=== PATIENT | female | born 1975 | race Caucasian/White ===

== ENCOUNTER 2017-11-26 09:41 | Emergency (ER) | payer SELFPAY ==
[~2017-11-26] VITALS: Ht 154.9 cm; Wt 81.6 kg
--- NOTE | 2017-11-26 09:42 | NUR ---
PT AMBULATES TO BED 5
--- NOTE | 2017-11-26 09:43 | NUR ---
42/F C/O SOB SINCE THIS AM WITH CP, LABORED BREATHING, HOARSE VOICE, R LUNG : WHEEZING. LIMITED SPEAKING DUE TO SOB.MED HX: ASTHMA, DEPRESSION. DENIES N/V/D; SKIN IS PINK/WARM/DRY; AAOX4 WITH EVEN AND STEADY GAIT. PATIENT STATES PAIN OF 8/10 AT THIS TIME. PATIENT POSITIONED FOR COMFORT; HOB ELEVATED; BEDRAILS UP X2; BED DOWN. ER MD MADE AWARE OF PT STATUS.
[2017-11-26 09:44] VITALS: BP 152/90
--- NOTE | 2017-11-26 09:45 | NUR ---
Patient being evaluated by physician at bedside.
--- NOTE | 2017-11-26 09:46 | NUR ---
RT AT BEDSIDE.
--- NOTE | 2017-11-26 09:53 | NUR ---
EKG AT BEDSIDE.
[2017-11-26] MEDS ORDERED: ALBUTEROL 0.083% 2.5 MG/3 ML NEBU INH ONE ×3 (09:55→12:05)
[2017-11-26] MEDS ORDERED: predniSONE 20 MG TAB PO ONE (09:55)
[2017-11-26] MEDS ORDERED: IPRATROPIUM 0.02% 0.5 MG/2.5 ML NEBU INH ONE (09:55)
--- NOTE | 2017-11-26 10:54 | NUR ---
RT AT BEDSIDE FOR 2ND BREATHING TREATMENT.
--- NOTE | 2017-11-26 11:57 | NUR ---
PATIENT PROVIDED WITH MEAL
[2017-11-26 13:34] VITALS: BP 116/68
--- NOTE | 2017-11-26 13:34 | NUR ---
Patient discharged with v/s stable. Written and verbal after care instructions given and explained. Patient alert, oriented and verbalized understanding of instructions. Ambulatory with steady gait. All questions addressed prior to discharge. ID band removed. Patient advised to follow up with PMD. Rx of PROAIR HFA& PREDNISONE given. Patient educated on indication of medication including possible reaction and side effects. Opportunity to ask questions provided and answered.
== END 2017-11-26 13:34 | disposition home or self-care (01) ==
LOC: MED 09:41
DX: J45.901 Unspecified asthma with (acute) exacerbation (principal); R94.31 Abnormal electrocardiogram [ECG] [EKG]
CPT/HCPCS: 81002; 81025; 93005; 94640; 99284; J7512; J7613; J7644